=== PATIENT | female | born 1975 | race Caucasian/White ===

== ENCOUNTER 2019-12-27 05:35 | Day surgery (SDC) | payer OTHER ==
[2019-12-27] MEDS ORDERED: PERCOCET 5-3251 EACH PO (08:30)
[2019-12-27] MEDS ORDERED: RECTICARE30 GM TOP (08:30)
== END 2019-12-27 12:45 | disposition home or self-care (01) ==
LOC: CIR.AMB 05:35
PROVIDERS: ATTEND Surgery
DX: K60.1 Chronic anal fissure (principal); K64.1 Second degree hemorrhoids; K62.0 Anal polyp